=== PATIENT | male | born 1980 | race Caucasian/White ===

== ENCOUNTER 2016-09-18 19:31 | Emergency (ER) | payer MEDICAID, OTHER ==
[2016-09-18] MEDS ORDERED: IBUPROFEN 600 MG TABLET ONE (20:50)
== END 2016-09-18 21:13 | disposition home or self-care (01) ==
LOC: ED 19:31
DX: S69.92XA Unspecified injury of left wrist, hand and finger(s), initial encounter (principal); F17.210 Nicotine dependence, cigarettes, uncomplicated; X50.3XXA Overexertion from repetitive movements, initial encounter; Y93.89 Activity, other specified; Y92.9 Unspecified place or not applicable